=== PATIENT | male | born 1950 | race African-American/Black ===

== ENCOUNTER 2021-08-20 15:01 | Inpatient (IN) | payer OTHER ==
[~2021-08-20] VITALS: Ht 177.8 cm; Wt 87.5 kg
[2021-08-20] MEDS ORDERED: PROAIR HFA8.5 GM INH (16:14)
[2021-08-20] MEDS ORDERED: ELIQUIS5 MG PO (16:15)
[2021-08-20] MEDS ORDERED: TESSALON PERLE100 M1 PO (16:15)
[2021-08-20] MEDS ORDERED: PLAVIX 75 MG TA75 MG PO (16:16)
[2021-08-20] MEDS ORDERED: FUROSEMIDE 40 M40 MG PO (16:17)
[2021-08-20] MEDS ORDERED: TOPROL XL25 MG PO (16:18)
[2021-08-20] MEDS ORDERED: BENICAR20 MG PO (16:19)
[2021-08-20] MEDS ORDERED: MULTIPLE VITAM1 EAC4 PO (16:19)
[2021-08-20] MEDS ORDERED: OMEGA-31000 M2 PO (16:20)
[2021-08-20] MEDS ORDERED: FLOMAX0.4 MG PO (16:27)
[2021-08-20] MEDS ORDERED: ROSUVASTATIN CA40 MG PO (16:27)
[2021-08-20 16:29] VITALS: BP 137/89
[2021-08-20] MEDS ORDERED: RANITIDINE PO (17:59)
--- NOTE | 2021-08-20 18:21 | NUR ---
PATIENT ADMIT TO UNIT FROM DR BEDOYA OFFICE. A/O X3. ON 2L/NC. SOB. DENIES PAIN. SA ON MONITOR. WILL KEEP MONITOR.
[2021-08-20 18:41] LABS: HEMATOCRIT 38.8 % (42.0-52.0); HEMOGLOBIN 12.6 gm/dL (14.0-18.0); MCH 29.8 pg (26.0-34.0); MCHC 32.6 g/dL (28.0-37.0); MCV 91.4 fL (80.0-100.0); RBC 4.24 mil/uL (4.50-6.00); RDW 15.3 % (10.5-14.5); WBC 7.3 thou/uL (4.0-11.0)
[2021-08-20 19:05] LABS: ALBUMIN 3.5 g/dL (3.4-5.0); CALCIUM 8.3 mg/dL (8.5-10.1); CREATININE 2.3 mg/dL (0.7-1.3); POTASSIUM 4.2 mmol/L (3.5-5.1); TOTAL BILIRUBIN 4.1 mg/dL (0.2-1.0)
[2021-08-20 19:15] VITALS: BP 135/89
[2021-08-20 19:39] LABS: TOTAL PROTEIN 6.9 g/dL (6.4-8.2)
[2021-08-20 23:30] VITALS: BP 120/65
--- NOTE | 2021-08-21 00:14 | NUR ---
PT ADMITTED ON DAY SHIFT FOR CHF. ALERT AND ORIENTED X3. REORIENTED TO CORRECT MONTH AND DATE. HE FOLLOWS COMMANDS. BED ALARM ON. INSTRUCTED PT ON FALL PRECAUTIONS DUE TO WEAKNESS NOTED WHILE GETTING FROM CHAIR TO BED. HIS FAMILY STATED HE IS WEAK LATELY AND NEEDS STANDBY ASSISTANCE. FINE CRACKLES NOTED AND DIMINISHED BS. LASIX STARTED ORDERED. PT HAS VOIDED SEVERAL TIMES NOW PER URINAL AT BS CLEAR YELLOW URINE. SATS WNL .SLEEPING PILL GIVEN. WILL CONTINUE TO MONITOR PT FOR CHANGES TONIGHT.
[2021-08-21 04:24] VITALS: BP 115/76
[2021-08-21 07:30] VITALS: BP 101/62; BP 141/79
--- NOTE | 2021-08-21 07:54 | NUR ---
PT VOIDED SEVERAL TIMES TONIGHT AFTER LASIX. NO C/O PAIN. NO S/S DISTRESS. IV RESTARTED PER ER NS.
[2021-08-21 11:30] VITALS: BP 116/60
--- NOTE | 2021-08-21 11:33 | NUR ---
INITIAL ASSESSMENT: DEMETRIUS reviewed chart and spoke with nursing and attending physician. Pt was admitted due to CHF/elevated liver enzymes. GI and Cardio consulted. Pt is on IV lasix and on 2L of O2. DEMETRIUS met with pt at bedside. Introduced role of Sw. Pt is alert/orientated. Pt reports he lives at home with his dtr and granddtr. Prior to admission, pt was indpendent with ADLs. No use of DME for ambulation. No home O2. No hx of services and post-acute placement. Pt's PCP is Dr. Alyson Fernandez. No weekend discharge planned. Plan is for pt to discharge home when medically stable. DEMETRIUS provided contact info for SW. DEMETRIUS is following to assist as needed with discharge planning.
[2021-08-21 15:05] LABS: % SATURATION 20 % (20-39); IRON 60 ug/dL (65-175); TIBC 304 ug/dL (250-450)
[2021-08-21 15:58] VITALS: BP 112/78
[2021-08-21 16:42] LABS: INR 2.65; PROTIME 27.6 Seconds (10.5-12.1)
[2021-08-21 16:55] LABS: CALCIUM 8.4 mg/dL (8.5-10.1); CREATININE 2.5 mg/dL (0.7-1.3); POTASSIUM 4.1 mmol/L (3.5-5.1)
[2021-08-21 17:43] LABS: SGOT 1413 U/L (15-37); SGPT 1493 U/L (30-65)
[2021-08-21 20:07] VITALS: BP 139/73
--- NOTE | 2021-08-21 21:31 | NUR ---
PT ALERT AND ORIENTED X3 TONIGHT. VERY SLIGHTLY FORGETFUL.POOR HISTORIAN. PT HAVING DIARRHEA DUE TO LACTULOSE. DR ERAZO NOTIFIED OF [employer] RAISED HEMATOMA ON RIGHT ARM WHICH IS PAINFUL TO TOUCH. PRESSURE DRESSING APPLIED, WRAPPED WITH KERLIX AND COBAN ORDERED. DISCONTINUED LOVENOX AND PLAVIX ORDERED BY DR ERAZO. NO ACTIVE BLEEDING NOTED FROM RIGHT ARM . NOTIFIED OF PULSE DIFFCULT TO PALPATE. CONFIRMED ULNAR ND RADIAL PULSE WITH DOPPLER. ARMS BOTH ARE COOL. PT DENIES ANY NUMBNESS , TINGLING OR DECREASED SENSATION TO RIGHT ARM OR FINGERS. VSS AFEBRILE 100% SAT ON 3LNC.
[2021-08-22 04:07] LABS: IgG 1153 mg/dL (603-1613)
[2021-08-22 04:17] VITALS: BP 103/66
[2021-08-22 06:07] LABS: HAV IgM AB (ANTI-HAV IgM) Negative (Negative); HEPATITIS B SURFACE AG Negative (Negative); HEPATITIS C VIRUS AB <0.1 (0.0-0.9)
[2021-08-22 06:26] LABS: ABSOLUTE NEUTROPHILS 6.7 thou/uL (1.4-8.2); HEMATOCRIT 36.6 % (42.0-52.0); HEMOGLOBIN 11.8 gm/dL (14.0-18.0); LYMPHOCYTES 14.3 % (24.0-44.0); MCH 29.7 pg (26.0-34.0); MCHC 32.2 g/dL (28.0-37.0); MCV 92.3 fL (80.0-100.0); MONOCYTES 14.7 % (1.0-8.0); PLATELET COUNT 110 thou/uL (150-400); RBC 3.96 mil/uL (4.50-6.00); RDW 15.3 % (10.5-14.5); WBC 9.4 thou/uL (4.0-11.0)
[2021-08-22 07:05] LABS: CALCIUM 8.1 mg/dL (8.5-10.1); CREATININE 2.3 mg/dL (0.7-1.3); PHOSPHORUS 5.4 mg/dL (2.5-4.9); TOTAL BILIRUBIN 4.4 mg/dL (0.2-1.0); TOTAL PROTEIN 6.2 g/dL (6.4-8.2)
[2021-08-22 07:30] VITALS: BP 108/63
[2021-08-22 15:01] VITALS: BP 102/58
[2021-08-22 15:07] LABS: CERULOPLASMIN 35.8 mg/dL (16.0-31.0)
[2021-08-22 19:08] VITALS: BP 103/58
[2021-08-23 03:51] VITALS: BP 112/66
[2021-08-23 05:54] LABS: CALCIUM 8.4 mg/dL (8.5-10.1); CREATININE 2.4 mg/dL (0.7-1.3)
[2021-08-23 06:00] LABS: POTASSIUM 2.7 mmol/L (3.5-5.1)
[2021-08-23 07:34] VITALS: BP 111/64
--- NOTE | 2021-08-23 08:02 | NUR ---
PT MAKING SLOW PROGRESS TOWARDS GOALS. ON O2 AT 3L PER NC OVERNIGHT. LUNGS NOTED WITH FAINT CRACKLES IN BOTH BASES THIS AM. PT DENIES SOA WHILE AT REST.
[2021-08-23 11:34] VITALS: BP 111/59
[2021-08-23 12:06] LABS: ANA INTERPRETATION Positive (Negative)
[2021-08-23 16:19] VITALS: BP 111/58
--- NOTE | 2021-08-23 19:35 | NUR ---
ASSUMED PATIENT CARE AT 0700. A/O X4. LASIX GTT AT 12ML/HR. NO SOB NOTED. SLOWLY TOWARDS POC GOALS.
[2021-08-23 19:54] VITALS: BP 108/59
[2021-08-24 05:35] VITALS: BP 111/57
[2021-08-24 05:47] LABS: ABSOLUTE NEUTROPHILS 7.5 thou/uL (1.4-8.2); BASOPHILS 0.2 % (0.0-2.0); EOSINOPHILS 0.6 % (0.0-3.0); HEMATOCRIT 42.2 % (42.0-52.0); HEMOGLOBIN 13.7 gm/dL (14.0-18.0); LYMPHOCYTES 12.3 % (24.0-44.0); MCH 29.4 pg (26.0-34.0); MCHC 32.4 g/dL (28.0-37.0); MCV 90.9 fL (80.0-100.0); PLATELET COUNT 138 thou/uL (150-400); POLYS 78.9 % (36.0-66.0); RBC 4.65 mil/uL (4.50-6.00); RDW 14.6 % (10.5-14.5); WBC 9.6 thou/uL (4.0-11.0)
[2021-08-24 06:16] LABS: ALBUMIN 3.5 g/dL (3.4-5.0); BUN 54 mg/dL (7-18); CALCIUM 9.9 mg/dL (8.5-10.1); CHLORIDE 87 mmol/L (98-107); CREATININE 2.1 mg/dL (0.7-1.3); GLUCOSE 127 mg/dL (74-106); PHOSPHORUS 4.4 mg/dL (2.5-4.9); SODIUM 135 mmol/L (136-145)
[2021-08-24 06:23] LABS: ALBUMIN 3.4 g/dL (3.4-5.0); DIRECT BILIRUBIN 1.8 mg/dL (<0.1-0.2); TOTAL PROTEIN 7.6 g/dL (6.4-8.2)
[2021-08-24 06:29] LABS: TOTAL BILIRUBIN 4.2 mg/dL (0.2-1.0)
[2021-08-24 06:32] LABS: CO2 > 45 mmol/L (21-32); POTASSIUM 2.4 mmol/L (3.5-5.1)
[2021-08-24 07:07] VITALS: BP 117/62
--- NOTE | 2021-08-24 07:37 | NUR ---
Patient progressing towards outcome goals. Diuresing on Lasix drip. Good pain control with Oxycodone. Vital signs and rhtym stable. Maintaining 1500 fluid restriction.
[2021-08-24 11:07] VITALS: BP 107/60
--- NOTE | 2021-08-24 12:55 | NUR ---
Pt discussed with the care team. Pt sba with nursing. PT/OT lisaals requested. Pt now off o2 and switching to po lasix. 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 Possible dc tomorrow home with dtr who is an SIMULATION SOFTWARE ENGINEER. Will await therapy imput regarding possible hh referral.
[2021-08-24 15:12] VITALS: BP 106/63
[2021-08-24 19:16] VITALS: BP 114/66
[2021-08-25 03:52] VITALS: BP 114/55
[2021-08-25 04:44] LABS: ALBUMIN 3.4 g/dL (3.4-5.0); BUN 56 mg/dL (7-18); CALCIUM 9.5 mg/dL (8.5-10.1); CHLORIDE 85 mmol/L (98-107); GLUCOSE 141 mg/dL (74-106); PHOSPHORUS 4.5 mg/dL (2.5-4.9); SGOT 214 U/L (15-37); SGPT 884 U/L (30-65); SODIUM 132 mmol/L (136-145); TOTAL BILIRUBIN 3.9 mg/dL (0.2-1.0); TOTAL PROTEIN 7.9 g/dL (6.4-8.2)
[2021-08-25 05:14] LABS: CO2 > 45 mmol/L (21-32); POTASSIUM 2.5 mmol/L (3.5-5.1)
--- NOTE | 2021-08-25 05:33 | NUR ---
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 POTASSIUM ORDERED TO BE REPLACED. SEE ORDERS. NO ORDERS GIVEN FOR CO2.
[2021-08-25 07:31] VITALS: BP 107/66
[2021-08-25 11:19] VITALS: BP 105/65
[2021-08-25] MEDS ORDERED: TORSEMIDE20 MG PO (11:34)
[2021-08-25 15:33] VITALS: BP 115/68
[2021-08-25 16:40] VITALS: BP 115/68
[2021-08-25] MEDS ORDERED: KLOR-CON M2020 MEQ PO (16:42)
--- NOTE | 2021-08-25 16:47 | NUR ---
CARE TEAM HAD INDICATED THAT PT MAY BE DC READY THIS DAY. PT AND OT SAW PT AND LOOKS LIKE PT [facility]TICIPATES DOING STAIRS TOMORROW. PT WAS HOPING FOR DC HOME THIS DAY BUT HIS K IS 2.5 AND CARE TEAM INDICATED THAT THEY ARE WANTING THAT TP IMPROVIE PRIOR TO DC. PT AND DTR RECETIVE TO HH SERVICES UPON DC. THEY INDICATED NO PREFERENCE FOR PROVIDER. REFERRAL SENT TO [facility]. DTR ASKED ABOUT [employer] AND [place] CM INDICATED THAT USUALLY NOTE COVERED BY INSURANCE BUT INFORMED HERE OF HOME MEDICALL SUPPLY. CM TO FOLLOW UP WITH PT AND DTR REGARDING DC NEEDS.
--- NOTE | 2021-08-25 18:17 | NUR ---
ASSUMED PATIENT CARE AT 0700. A/O X4. DENIES PAIN. UP WALK IN ROOM. PROGRESSING TOWARDS POC GOALS.
[2021-08-25 19:41] VITALS: BP 117/66
[2021-08-26 02:49] VITALS: BP 110/60
[2021-08-26 06:50] LABS: HEMATOCRIT 47.9 % (42.0-52.0); MCH 29.8 pg (26.0-34.0); MCHC 32.8 g/dL (28.0-37.0); MCV 90.8 fL (80.0-100.0); RBC 5.28 mil/uL (4.50-6.00); RDW 15.4 % (10.5-14.5); WBC 9.2 thou/uL (4.0-11.0)
[2021-08-26 07:10] LABS: HEMOGLOBIN 15.7 gm/dL (14.0-18.0)
[2021-08-26 07:29] VITALS: BP 115/66
[2021-08-26 07:32] LABS: ALBUMIN 3.4 g/dL (3.4-5.0); BUN 54 mg/dL (7-18); CALCIUM 9.5 mg/dL (8.5-10.1); CHLORIDE 85 mmol/L (98-107); CREATININE 1.9 mg/dL (0.7-1.3); GLUCOSE 147 mg/dL (74-106); PHOSPHORUS 4.6 mg/dL (2.6-4.7); SODIUM 132 mmol/L (136-145)
[2021-08-26 07:41] LABS: CO2 > 45 mmol/L (21-32); POTASSIUM 2.8 mmol/L (3.5-5.1)
[2021-08-26] MEDS ORDERED: KLOR-CON M2020 MEQ PO (07:52)
--- NOTE | 2021-08-26 08:10 | NUR ---
PT MAKING SLOW PROGRESS. ON ROOM AIR THROUGHOUT THE NIGHT. NO COMPLAINTS OF SOA WHILE AT REST.
[2021-08-26 11:40] LABS: ALBUMIN 3.4 g/dL (3.4-5.0); DIRECT BILIRUBIN 1.4 mg/dL (<0.1-0.2); TOTAL BILIRUBIN 3.9 mg/dL (0.2-1.0); TOTAL PROTEIN 8.2 g/dL (6.4-8.2)
[2021-08-26 12:14] VITALS: BP 115/68
[2021-08-26] MEDS ORDERED: SPIRONOLACTONE25 MG PO (12:20)
--- NOTE | 2021-08-26 12:40 | NUR ---
Sent fax to [employer] [facility], order for front wheel walker given awaiting delivery. Daughter at the bedside mentioned the soonest they can dc since she works today.
--- NOTE | 2021-08-26 13:47 | NUR ---
CARE ASSUMED THIS AM, PT ALERT AND ORIENTED X4. POTASSIUM LOWW THIS AM, REPLACED AND DR. BUNN WITH PT GOING HOME. HAD A PROJECTILE VOMITTING, THEW UP MOST OF HIS AM MEDS, DR. BEDOYA MADE AWARE, STATED TO RE-GIVE ALL HIS AM MEDS AGAIN. WENT THROUGH DISCHARGE INSTRUCTIONS WITH PT AND HER DAUGHTER, THEY ARE AWARE OF PT OUTPT APPOINTMENT AND NEW MED INFO. IV AND TELE D/C. ALL BELONGINGS WITH PT. PT TAKEN DOWN VIA WHEELCHAIR. DENIES ANY NEEDS GISEL.
== END 2021-08-26 14:02 | disposition home health service (06) | DRG 291 ==
LOC: SJCVC 15:01 → 3W 15:15
PROVIDERS: Hospitalist; Internal Medicine; Nurse Practitioner; Nurse Practitioner Adult Health; ADMIT Internal Medicine Cardiovascular Disease; ATTEND Internal Medicine Cardiovascular Disease
PROC: 0T9B70Z Drainage of Bladder with Drainage Device, Via Natural or Artificial Opening (ICD-10-PCS; principal; 2021-08-21)
PROC: 3E02340 Introduction of Influenza Vaccine into Muscle, Percutaneous Approach (ICD-10-PCS; principal; 2021-08-21)
DX: I13.0 Hypertensive heart and chronic kidney disease with heart failure and stage 1 through stage 4 chronic kidney disease, or unspecified chronic kidney disease (principal); I50.23 Acute on chronic systolic (congestive) heart failure; J96.00 Acute respiratory failure, unspecified whether with hypoxia or hypercapnia; N17.9 Acute kidney failure, unspecified; E87.3 Alkalosis; S36.119A Unspecified injury of liver, initial encounter; I25.5 Ischemic cardiomyopathy; N18.30 Chronic kidney disease, stage 3 unspecified; I25.10 Atherosclerotic heart disease of native coronary artery without angina pectoris; M10.9 Gout, unspecified; E78.5 Hyperlipidemia, unspecified; I25.2 Old myocardial infarction; I48.0 Paroxysmal atrial fibrillation; Z79.01 Long term (current) use of anticoagulants; D69.6 Thrombocytopenia, unspecified; E87.6 Hypokalemia; I08.1 Rheumatic disorders of both mitral and tricuspid valves; D64.9 Anemia, unspecified; Z23 Encounter for immunization
CPT/HCPCS: 10779; 10879

== ENCOUNTER → 2021-08-20 | Outpatient (CLI) | payer OTHER ==
[~2021-08-20] MED LIST: BENICAR20 MG PO; ELIQUIS5 MG PO; FLOMAX0.4 MG PO; FUROSEMIDE 40 M40 MG PO; MULTIPLE VITAM1 EAC4 PO; OMEGA-31000 M2 PO; PLAVIX 75 MG TA75 MG PO; PROAIR HFA8.5 GM INH; RANITIDINE PO; ROSUVASTATIN CA40 MG PO; TESSALON PERLE100 M1 PO; TOPROL XL25 MG PO
== END ==
LOC: SJCVCIMAG 15:29
PROVIDERS: ATTEND Internal Medicine Cardiovascular Disease
DX: R94.31 Abnormal electrocardiogram [ECG] [EKG] (principal); I08.8 Other rheumatic multiple valve diseases; I25.10 Atherosclerotic heart disease of native coronary artery without angina pectoris; I10 Essential (primary) hypertension; E78.5 Hyperlipidemia, unspecified; I48.91 Unspecified atrial fibrillation; R06.02 Shortness of breath; I25.5 Ischemic cardiomyopathy; R60.9 Edema, unspecified; Z86.16 Personal history of COVID-19; Z79.899 Other long term (current) drug therapy

== ENCOUNTER → 2021-09-29 | Outpatient (CLI) | payer OTHER ==
[~2021-09-29] MED LIST changes: +KLOR-CON M2020 MEQ PO; +SPIRONOLACTONE25 MG PO; +TORSEMIDE20 MG PO
== END ==
LOC: SJCVCIMAG 07:09
PROVIDERS: ATTEND Internal Medicine Cardiovascular Disease
DX: I49.3 Ventricular premature depolarization (principal); U07.1 COVID-19; I25.10 Atherosclerotic heart disease of native coronary artery without angina pectoris; I42.9 Cardiomyopathy, unspecified; I48.0 Paroxysmal atrial fibrillation; I10 Essential (primary) hypertension; E78.5 Hyperlipidemia, unspecified; I13.0 Hypertensive heart and chronic kidney disease with heart failure and stage 1 through stage 4 chronic kidney disease, or unspecified chronic kidney disease; N18.9 Chronic kidney disease, unspecified; I50.22 Chronic systolic (congestive) heart failure; M10.9 Gout, unspecified; Z79.82 Long term (current) use of aspirin; Z79.899 Other long term (current) drug therapy; Z87.891 Personal history of nicotine dependence